=== PATIENT | female | born 1935 | race Caucasian/White ===

== ENCOUNTER 2020-06-17 17:46 | Emergency (ER) | payer MEDICARE, OTHER ==
[~2020-06-17] VITALS: Ht 157.5 cm; Wt 59.0 kg
[2020-06-17 18:35] LABS: BASOPHILS ABSOLUTE AUTO 0.03 K/mm3 (0.00-0.23); BASOPHILS PERCENT AUTO 1 % (0-2); EOSINOPHILS ABSOLUTE AUTO 0.09 K/mm3 (0.00-0.68); EOSINOPHILS PERCENT AUTO 2 % (0-6); Hemoglobin 10.2 g/dL (11.5-16.0); IMMATURE GRAN ABSOLUTE AUTO 0.02 K/mm3 (0.00-0.10); IMMATURE GRAN PERCENT AUTO 0 % (0-1); LYMPHOCYTES ABSOLUTE AUTO 1.58 K/mm3 (0.84-5.20); LYMPHOCYTES PERCENT AUTO 32 % (21-46); MONOCYTES ABSOLUTE AUTO 0.51 K/mm3 (0.16-1.47); MONOCYTES PERCENT AUTO 10 % (4-13); Mean Corpuscular HGB 18.2 pg (26.0-34.0); Mean Corpuscular Volume 61 fL (80-100); NEUTROPHILS ABSOLUTE AUTO 2.79 K/mm3 (1.96-9.15); NEUTROPHILS PERCENT AUTO 56 % (41-73); Platelet Count 253 K/mm3 (150-400); RDW Coefficient Variation 17.2 % (11.7-14.2); RDW Standard Deviation 34.9 fL (35.1-46.3); Red Blood Cell Count 5.59 M/mm3 (3.80-5.20); White Blood Cell Count 5.02 K/mm3 (4.00-11.30)
[2020-06-17 18:59] LABS: Troponin I <0.015 ng/mL (0.000-0.040)
[2020-06-17 19:00] LABS: Alanine Aminotransfer (ALT/SGP 19 U/L (12-78); Albumin, Blood 4.1 g/dL (3.4-5.0); Albumin/Globulin Ratio 1.1 (0.8-1.8); Alk Phos 106 U/L (50-136); Anion Gap 4 mmol/L (6-16); Aspartate Aminotrans (AST/SGOT 14 U/L (12-37); Bilirubin, Total 0.4 mg/dL (0.1-1.0); Blood Urea Nitrogen 21 mg/dL (8-24); Bun/Creatinine Ratio 34.4 (12.0-20.0); CO2, Blood 25 mmol/L (21-32); Calcium, Blood 9.3 mg/dL (8.5-10.1); Chloride, Blood 110 mmol/L (98-108); Creatinine, Blood 0.61 mg/dL (0.40-1.00); Globulin, Blood 3.7 g/dL (2.2-4.0); Glomerular Filtration Rate >60 (60-); Glucose, Blood 125 mg/dL (70-99); Potassium, Blood 3.9 mmol/L (3.5-5.5); Sodium, Blood 139 mmol/L (136-145); Total Protein, Blood 7.8 g/dL (6.4-8.2)
== END 2020-06-17 20:18 | disposition left against medical advice (07) ==
LOC: ER 17:46
PROVIDERS: Physician Assistant
DX: R94.31 Abnormal electrocardiogram [ECG] [EKG] (principal); R07.9 Chest pain, unspecified; Z53.20 Procedure and treatment not carried out because of patient's decision for unspecified reasons
CPT/HCPCS: 71046; 80053; 83880; 84484; 85025; 93005; 93010; 99285-25

== ENCOUNTER 2020-08-18 15:16 | Inpatient (IN) | payer MEDICARE, OTHER ==
[~2020-08-18] VITALS: Ht 157.5 cm; Wt 59.1 kg
[2020-08-18] MEDS ORDERED: ACET325 PO (15:33)
[2020-08-18 15:55] LABS: Calcium, Ionized (POC) 1.24 mmol/L (1.10-1.46); Chloride (POC) 103 mmol/L (98-108); Creatinine (POC) 0.7 mg/dL (0.6-1.0); Glucose (ISTAT POC) 183 mg/dL (70-99); Hemoglobin (POC) 11.9 g/dL (12.0-16.0); Potassium (POC) 4.1 mmol/L (3.5-5.5); Sodium (POC) 139 mmol/L (135-148); Total CO2 (POC) 23 mmol/L (21-32)
[2020-08-18 16:12] LABS: Prothrombin Time Results 10.8 Sec (9.7-11.5)
[2020-08-18 16:13] LABS: Alanine Aminotransfer (ALT/SGP 20 U/L (12-78); Albumin, Blood 3.8 g/dL (3.4-5.0); Albumin/Globulin Ratio 1.1 (0.8-1.8); Alk Phos 78 U/L (50-136); Anion Gap 7 mmol/L (6-16); Aspartate Aminotrans (AST/SGOT 21 U/L (12-37); Bilirubin, Total 0.6 mg/dL (0.1-1.0); Blood Urea Nitrogen 18 mg/dL (8-24); Bun/Creatinine Ratio 25.2 (12.0-20.0); CO2, Blood 22 mmol/L (21-32); Calcium, Blood 8.9 mg/dL (8.5-10.1); Chloride, Blood 109 mmol/L (98-108); Cholesterol 177 mg/dL (50-200); Creatinine, Blood 0.71 mg/dL (0.40-1.00); Globulin, Blood 3.4 g/dL (2.2-4.0); Glomerular Filtration Rate >60 (60-); Glucose, Blood 180 mg/dL (70-99); Magnesium, Blood 2.1 mg/dL (1.6-2.4); Sodium, Blood 138 mmol/L (136-145); Total Protein, Blood 7.2 g/dL (6.4-8.2); Triglycerides 101 mg/dL (30-160); Troponin I 0.207 ng/mL (0.000-0.040); Very Low Density Lipoprot Chol 20 mg/dL (6-32)
[2020-08-18 16:15] LABS: Hematocrit 32.6 % (33.0-51.0); Hemoglobin 9.9 g/dL (11.5-16.0); Mean Corpuscular HGB 18.3 pg (26.0-34.0); Mean Corpuscular HGB Conc 30.4 g/dL (31.5-36.5); Mean Corpuscular Volume 60 fL (80-100); Mean Platelet Volume 9.7 fL (9.1-12.4); Platelet Count 214 K/mm3 (150-400); RDW Coefficient Variation 17.6 % (11.7-14.2); RDW Standard Deviation 34.8 fL (35.1-46.3); Red Blood Cell Count 5.41 M/mm3 (3.80-5.20); White Blood Cell Count 6.77 K/mm3 (4.00-11.30)
[2020-08-18 16:16] LABS: CHOL/HDL RATIO 3.8; HDL Cholesterol 46 mg/dL (>39); LDL/HDL RATIO 2.4; Low Density Lipoprotein Chol 111 mg/dL (0-110)
[2020-08-18] MEDS ORDERED: NITR.4SL SL (16:34)
[2020-08-18] MEDS ORDERED: METF500 (16:34)
[2020-08-18] MEDS ORDERED: TRAZ50 PO (16:34)
[2020-08-18] MEDS ORDERED: Lisinopril2.5 MG (16:35)
[2020-08-18] MEDS ORDERED: Synthroid200 MCG PO (16:35)
[2020-08-18 19:57] LABS: International Normalized Ratio 1.06; Prothrombin Time Results 11.4 Sec (9.7-11.5)
--- NOTE | 2020-08-18 21:30 | NUR ---
ASSUMPTION OF CARE PT ALERT IN BED, ORIENTED TO SELF, LOCATION, YEAR AND FOLLOWING DIRECTIONS. O2 SAUTRATIONS> 90% ON RA, MONITOR SHOWS SINUS RHYTHM WITH HR 70'S-80'S, HTN NOTED WITH SBP 150'S-160'S, PT REPORTS 6/10 CP, NITRO GTT INFUSING @ 10 INITIALLY, TITRATED UP TO 25, NEW ORDER FOR PRN MORPHINE. R RADIAL ACCESS SITE STABLE, ASSESSED WITH DAY SHIFT RN, SOFT AND NO HEMATOMA NOTED, TR BAND IN PLACE. PT DENIES GI/ ISSUES AT THIS TIME.
[2020-08-19 03:36] LABS: BASOPHILS ABSOLUTE AUTO 0.03 K/mm3 (0.00-0.23); BASOPHILS PERCENT AUTO 0 % (0-2); EOSINOPHILS ABSOLUTE AUTO 0.02 K/mm3 (0.00-0.68); EOSINOPHILS PERCENT AUTO 0 % (0-6); Hematocrit 29.9 % (33.0-51.0); Hemoglobin 9.3 g/dL (11.5-16.0); IMMATURE GRAN ABSOLUTE AUTO 0.02 K/mm3 (0.00-0.10); IMMATURE GRAN PERCENT AUTO 0 % (0-1); LYMPHOCYTES ABSOLUTE AUTO 1.07 K/mm3 (0.84-5.20); LYMPHOCYTES PERCENT AUTO 16 % (21-46); MONOCYTES ABSOLUTE AUTO 0.65 K/mm3 (0.16-1.47); MONOCYTES PERCENT AUTO 10 % (4-13); Mean Corpuscular HGB 18.5 pg (26.0-34.0); Mean Corpuscular HGB Conc 31.1 g/dL (31.5-36.5); Mean Corpuscular Volume 59 fL (80-100); Mean Platelet Volume 9.7 fL (9.1-12.4); NEUTROPHILS ABSOLUTE AUTO 5.05 K/mm3 (1.96-9.15); NEUTROPHILS PERCENT AUTO 74 % (41-73); Platelet Count 200 K/mm3 (150-400); RDW Standard Deviation 34.1 fL (35.1-46.3); Red Blood Cell Count 5.04 M/mm3 (3.80-5.20); White Blood Cell Count 6.84 K/mm3 (4.00-11.30)
[2020-08-19 03:52] LABS: Alanine Aminotransfer (ALT/SGP 43 U/L (12-78); Albumin, Blood 3.6 g/dL (3.4-5.0); Albumin/Globulin Ratio 1.2 (0.8-1.8); Alk Phos 63 U/L (50-136); Anion Gap 4 mmol/L (6-16); Aspartate Aminotrans (AST/SGOT 277 U/L (12-37); Bilirubin, Total 0.8 mg/dL (0.1-1.0); Blood Urea Nitrogen 17 mg/dL (8-24); Bun/Creatinine Ratio 24.9 (12.0-20.0); CO2, Blood 26 mmol/L (21-32); Calcium, Blood 8.3 mg/dL (8.5-10.1); Chloride, Blood 106 mmol/L (98-108); Creatinine, Blood 0.68 mg/dL (0.40-1.00); Globulin, Blood 3.1 g/dL (2.2-4.0); Glomerular Filtration Rate >60 (60-); Glucose, Blood 151 mg/dL (70-99); Potassium, Blood 3.6 mmol/L (3.5-5.5); Sodium, Blood 136 mmol/L (136-145); Total Protein, Blood 6.7 g/dL (6.4-8.2)
--- NOTE | 2020-08-19 06:07 | NUR ---
SHIFT SUMMARY PT SLEPT VERY LITTLE DURING NIGHT R/T FREQUENT NURSING ASSESSMENT/CARE, REMAINS ORIENTED TO SELF, LOCATION, YEAR, AND SIMPLE UNDERSTANDING OF SITUATION, PT IS VERY FORGETFUL ASKING SAME QUESTIONS FREQUENTLY. MONITOR SHOWS SINUS RHYTHM WITH HR 70'S, BP IMPROVED WITH SBP 130'S-150'S, NITRO GTT INFUSING @ 25, HEPARIN GTT INITIATED THIS SHIFT, MANAGED PER PHARMACY. PT DENIED CP WITH AM ASSESSMENTS. REMOVAL OF TR BAND DELAYRED R/T MINIMAL BLEEDING NOTED DURING DEFLATION, BAND REMOVED @ 0400 AND SITE REMAINS STABLE. PT DENIES GI/ ISSUES, TOLERATED PO FLUIDS WELL DURING NIGHT. PT VERY WEAK, PREFERRED USE OF BEDPAN OVER BSC, ABLE TO MAKE SMALL REPOSITIONS IN BED. PT EDUCATED ON USE OF CALL LIGHT AND IS ABLE TO USE APPROPRIATELY.
--- NOTE | 2020-08-19 08:15 | NUR ---
HEPARIN GTT INFUSING PER EMAR, NITRO GTT INFUSING AT 25 MCG. VERIFIED PUMP RATES WITH OFFGOING SHIFT RN. PT IS ORIENTED TO SELF AND SURROUNDINGS, ABLE TO STATE THAT SHE IS IN A HOSPITAL, STATES THAT SHE LIVES IN [facility] BUT UNABLE TO STATE WHERE THIS HOSPITAL IS LOCATED. DR. TANNER AT BEDSIDE, STATED PLAN IS FOR ANOTHER HEART CATH TODAY. HEART CENTER STAFF TOOK PATIENT TO HC WITH HEPARIN/NITRO INFUSING. PT REQUESTED THAT THIS RN CALL AND UPDATE HER MALICK, THIS RN SPOKE WITH DON ON THE PHONE, ANSWERED QUESTIONS TO PT'S 'S SATISFACTION.
--- NOTE | 2020-08-19 10:50 | NUR ---
GROIN SITE BLEED DR. TANNER BY TO SEE PT AND EVAL GROIN OOZING. ORDERS RECEIVED TO HOLD MANUAL PRESSURE FOR [address] THEN [address] FEMSTOP IF OOZE CONTINUES. MANUAL PRESSSURE HELD BY THIS RN FOR 20 MINUTES ORDERED AND OOZING CONTINUED. FEMSTOP PLACED AT 1048 WITH 140 MM PRESSURE PER ORDERS.
--- NOTE | 2020-08-19 10:52 | NUR ---
PATIENT ARRIVED BACK TO UNIT FROM [facility] AT 1000. NO HEMATOMA/DISCHARGE NOTED AT R. GROIN SITE. PT REMAINED IN FLAT POSITION, WITHIN 10 MINUTES FROM ARRIVAL TO UNIT GROIN SITE STARTED BLEEDING. MANUAL PRESSURE HELD, RAFITA DRESSING APPLIED. BLOOD PRESSURE ELEVATED. DR. TANNER NOTIFIED OF BLEED AND OF ELEVATED BP, ORDERS TO CONTINUE TO HOLD MANUAL PRESSURE GIVEN AND ORDERS FOR [address] TANNER CAME TO BEDSIDE, BLEEDING CONTINUED AT THAT TIME. ORDERS TO APPLY FEM STOP GIVEN. NO NEW BLEEDING AT THIS TIME, WCTM.
--- NOTE | 2020-08-19 14:52 | NUR ---
PT BECAME AGITATED STARTING AT 1200 DURING A LAB DRAW. PT TRIED TO GET UP, STARTING PULLING AT IV, STATED THAT THE STAFF WAS "TRYING TO KILL ME." R. GROIN POST-ANGIO SITE BEGAIN BLEEDING MORE. PATIENT WAS CONSTANTLY TRYING TO SIT UP AND PULLING KNEES UP TO ABDOMEN. THIS RN PROVIDED ORIENTING INFORMATION AND REASSURED PT THAT SHE WAS IN THE HOSPITAL, IDENTIFIED THE STAFF NURSES AND CNAs, HOWEVER PT CONTINUED TO YELL THAT STAFF WAS TRYING TO KILL HER AND THAT SHE NEEDED US TO CALL AN AMBULANCE TO TAKE HER TO THE HOSPITAL. SECURITY CAME TO ASSIST AT BEDSIDE, CHARGE NURSE SARAHY Hidalgo ALSO AT BEDSIDE AT THIS TIME. DR. CHOUDHARY WAS CALLED BY SARAHY HARVEY, ORDERS FOR ATIVAN GIVEN AND ADMINISTERED PER EMAR, ORDERS FOR X4 EXTREMITY RESTRAINTS AND RUBEN VEST GIVEN. DR. CHOUDHARY CAME TO BEDSIDE TO EVALUATE PT. ORDERS FOR HALDOL GIVEN, ADMINISTERED PER EMAR. SOME IMPROVEMENT NOTED AFTER HALDOL GIVEN. PT WAS NO LONGER PULLING AT RESTRAINTS, BUT STILL ABLE TO BE ARROUSED. ONCE PT STOPPED KICKING AND TRYING TO SIT UP BLEEDING AT ANGIO SITE STOPPED. RICARDA.
--- NOTE | 2020-08-19 17:26 | NUR ---
Spiritual care note: Met with spouse, pt's dtr and unruly. Took family to ICU waiting for conversation @ POC per nursing request. Spouse appears to have some confusion. He was often repetative. He believes pt can improve with time. He is adamant that if she goes to a SNF, "She will within 48 hrs." Moments later, he states that she will absolutely need cardiac rehab in one of the local SNFs. Dtr attempted to get him to understand that pt has dementia and she will continue to decline. Dtr wanted to talk about plan for pt's safety as pt will often became combative and "take off." Spouse insisted that with his "extensive neurological education, he understands the brain better than anyone here" and she will not get worse b/c she has never been diagnosed with any form of dementia. Also, because pt has insisted she wants to live, she will forever remain Full Code status "Until a concrete gun operator deems her unable to make her own choices." According to spouse, this is the only way her code status can change. Several gentle attempts were made to correct spouse, but he kept repeating his extensive education in medicine. It is clear to me that all involved love this woman. Also all of them want what is best for her. They disagree on what "best" is, however. More family to arrive in coming days. Pt is deeply buddhist and loves her Pentecostalism audi. Prayer provided at bedside and rosary place with pt. Pt appeared to be sleeping peacefully. Television And Radio Repairer services will remain available.
--- NOTE | 2020-08-19 18:15 | NUR ---
SHIFT SUMMARY PT IS ORIENTED TO SELF ONLY THIS SHIFT, UNABLE TO FOLLOW DIRECTIONS, PULLS AT LINES, KICKS AND HITS SIDERAILS IF THEY ARE UP, REPOSITIONED FREQUENTLY T/O SHIFT. PT HAD ONE INCONTINENT VOID, APPEARED TO BE RETAINING, ORDER FOR WATTS AND PLACED. PT APPEARED TO HAVE SOME RELIEF OF AGITATION POST VOID, AND POST WATTS PLACEMENT, >700 ML DRAINED IMMEDIATELY POST WATTS INSERTION. PT HAD BLEED FROM R. GROIN SITE POST ANGIO, SEE PREVIOUS NURSING NOTES. FEMSTOP REMOVED BEFORE END OF SHIFT, NO ADDITIONAL BLEEDING EVENTS FROM R. GROIN SITE SINCE REMOVAL OF FEMSTOP. PT'S SPOUSE DON WAS AT BEDSIDE THROUGHOUT AFTERNOON, DON STATED THAT AT HOME PATIENT IS VERY FORGETFUL AND NEEDS ASSISTANCE WITH ADLs IN ORDER TO PREVENT THE PT FROM FALLING. 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 PT'S SPOUSE ALSO CLAIMED TO HAVE STARTED SEVERAL NURSING HOMES, AND THAT HE BELIEVED THAT WHEN SOMEONE WAS PLACED IN A SNF, THEY WOULD WITHIN THE FIRST FEW DAYS. THIS RN PROVIDED REASSURANCE THAT THERE ARE OPTIONS FOR SAFE PROVISION OF CARE THAT CAN BE EXPLORED.
[2020-08-19 19:45] LABS: Source, Urine Catheter
[2020-08-19 19:51] LABS: Appearance, Urine Clear (Clear); Bilirubin, Urine Neg (Neg); Blood, Urine 3+ (Neg); Color, Urine Yellow (P-Yellow); Glucose Qualitative, Urine 2+ (Neg); Ketones, Urine 2+ (Neg); Leukocyte Esterase, Urine Neg (Neg); Nitrite, Urine Neg (Neg); Protein, Urine 2+ (Neg); Specific Gravity, Urine 1.015 (1.003-1.022); Urobilinogen, Urine NORM (Normal)
[2020-08-19 19:59] LABS: Bacteria Mod /hpf; Squamous Epithelial Cells Few /hpf (Few); White Blood Cells, Urine 0-2 /hpf (0-5)
--- NOTE | 2020-08-19 20:00 | NUR ---
ASSUMED CARE OF PT AT 1915. REPORT RECEIVED AT BEDSIDE. PT PRESENTS IN BED. ALERT AND CONFUSED. PULLING AT RESTRAINTS AND MUMBLING. PT DOES REDIRECT AND CALM WITH SOOTHING WORDS. NO S/S DYSPNEA OR PAIN. RIGHT GROIN PUNCTURE SITE ASSESSED WITH OFFGOING RN. NO HEMATOMA OR OOZING. SURROUNDING ECCHYMOSIS NOTED. RIGHT WRIST WITH ARMBOARD SECONDARY TO RADIAL ACCESS. NO HEMATOMA OR OOZING. WILL REVIEW CHART AND PLAN OF CARE FOR THIS PT.
--- NOTE | 2020-08-20 00:30 | NUR ---
HAVE OPTED TO REMOVE LOWER EXTREMITY RESTRAINTS. WILL CONTINUE TO CLOSELY MONITOR PT FOR SAFETY. WHEN UPPER EXTREMITY RESTRAINTS WAS REMOVED, PT REACHES QUICKLY FOR WATTS CATHETER AND PULLS BREAKING CATHETER FREE FROM STATLOCK. PT FREQUENTLY MOVES ABOUT IN BED. VERY ACTIVE WITH HER LEGS THOUGH NO AGRESSIVENESS. PT NEEDS FREQUENT REASSURANCE AND REDIRECTION. WILL CONTINUE TO MONITOR PT.
[2020-08-20 05:41] LABS: Hematocrit 30.2 % (33.0-51.0); Hemoglobin 9.3 g/dL (11.5-16.0); Mean Corpuscular HGB 18.2 pg (26.0-34.0); Mean Corpuscular HGB Conc 30.8 g/dL (31.5-36.5); Mean Corpuscular Volume 59 fL (80-100); Platelet Count 222 K/mm3 (150-400); RDW Coefficient Variation 16.8 % (11.7-14.2); RDW Standard Deviation 33.1 fL (35.1-46.3); Red Blood Cell Count 5.12 M/mm3 (3.80-5.20); White Blood Cell Count 9.03 K/mm3 (4.00-11.30)
[2020-08-20 05:59] LABS: Anion Gap 9 mmol/L (6-16); Blood Urea Nitrogen 8 mg/dL (8-24); Bun/Creatinine Ratio 17.4 (12.0-20.0); CO2, Blood 23 mmol/L (21-32); Calcium, Blood 8.8 mg/dL (8.5-10.1); Chloride, Blood 106 mmol/L (98-108); Creatinine, Blood 0.46 mg/dL (0.40-1.00); Glomerular Filtration Rate >60 (60-); Glucose, Blood 157 mg/dL (70-99); Sodium, Blood 138 mmol/L (136-145)
--- NOTE | 2020-08-20 06:30 | NUR ---
PT REMAINS VERY ANXIOUS AND DID STATE SHE FELT SHE NEEDED TO HAVE BM. DID OPT TO GET PT UP TO BEDSIDE COMMODE WITH TWO PERSON ASSIST. ORTHOSTATIC BP'S DONE DURING THIS TIME WITH DRAMATIC CHANGES IN PRESSURES. SEE FLOWSHEET FOR DETAILS. PT HAS BEEN MEDICATED WITH 3 MG HALDOL, AND 1 MG ATIVAN WITH SOME RELIEF. PT REMAINS WITHOUT HEMATOMA OR OOZING FROM EITHER RIGHT GROIN OR RIGHT RADIAL ACCESS SITES. ECCHYMOSIS IS NOTED. WILL CONTINUE TO MONITOR PT, AND WILL REPORT OFF TO ONCOMING RN.
--- NOTE | 2020-08-20 08:00 | NUR ---
LT WRIST IV REMOVED BLISTERING NOTED BELOW DRESSING. BLISTERING IS NOT UNDER THE WRIST RESTRAINT. IV REMOVED AND PRESSURE DRESSED
--- NOTE | 2020-08-20 08:23 | NUR ---
PO MEDICATIONS ARE HELD PT IS ALTERED AND AGITATED, SHE CAN NOT BE DIRECTED TO SAFELY SWALLOW MEDICATIONS WITHOUT AIRWAY COMPROMISE.
--- NOTE | 2020-08-20 14:00 | NUR ---
PT APPEARS TO HAVE A SLIGHT IMPROVEMENT IN MENTATION, REMAINS CONFUSED BUT IS ABLE TO EXPRESS HER NEEDS. PT AWAKENS EASILY TO VERBAL STIMULI. PT REPOSITIONED NUMEROUS TIMES T/O THE DAY, WAS UP TO BEDSIDE CHAIR WITH RESTRAINTS IN PLACE, PT DID NOT WISH TO REMAIN IN CHAIR VERY LONG. ECCOMOSIS HAS NOT WORSENED TO RT ARM THAT EXTENDED TO ELBOW UPON SHIFT CHANGE THIS AM, IV TO RT HAND WAS D/C IT WAS NOT WORKING. PT LT GROIN SITE WITH BRUSING NOTED AROND SITE WHICH ALSO HAS NOT WORSENED T/O THIS SHIFT. PT REMAINS IN SWB VEST HAS BEEN REMOVED AT THIS POINT BUT IS NOT D/C. VSS. PT IS CURRENTLY SLEEPING WELL, PAOLON
--- NOTE | 2020-08-20 16:24 | NUR ---
PT REMAINS CONFUSED, ORIENTED TO SURROUDNINGS, SELF AND FAMILY. S/O AT BEDSIDE IS ANSWERING FOR PT ORIENTATION IS BEING ASSESSED AND STS "SHE WAS CLOSE ENOUGH" WHEN PT WAS NOT CLOSE TO CORRECT ANSWERING QUESTIONS. PT RESTING CALMLY IN BED AT THIS TIME, WILL CONTINUE TO MONITOR FOR MENTATION IMPROVEMENT FOR REMOVING SWB.
--- NOTE | 2020-08-20 18:38 | NUR ---
PT HAS CONTINUED TO HAVE AND IMPROVEMENT IN CONFUSION. WE ARE PERFORMING A TRIAL REMOVAL OF THE RESTRAINTS. PT ATE 75% OF HER DINNER AND WAS ABLE TO SAFELY TAKE HER IRON TABLET THIS EVENING WITH APPLESAUCE. PT IS ABLE TO TALK ABOUT HER HX AN RN BUT SHE IS UNSURE WHERE SHE IS AT, THE DATE OR THE PRESIDENT. PT IS RESTING WELL IN BED. THERE ARE NO FURTHER CHANGES SINCE THE LAST NOTE ENTRY
--- NOTE | 2020-08-20 22:29 | NUR ---
PATIENT IS CALM COOPERATIVE, FOLLOW COMMANDS ABLE TO MAKE NEEDS KNOWN, USING CALL LIGHT APPROPRIATELY, ALERT TO SELF, PLACE, LITTLE FOGGY ON TIME AND SITUATION ABLE TO TELL ME FAMILY MEMBERS NAMES.
--- NOTE | 2020-08-20 22:52 | NUR ---
PATIENT ANXIOUS, TRYING TO GET OUT OF BED, TREMORS. REFER TO MAR FOR INTERVENTION AND REDIRECTION PROVIDED
--- NOTE | 2020-08-21 05:07 | NUR ---
PATIENT IS ABLE TO USE THE BEDSIDE COMMODE WITH ONE PERSON ASSIST, ABLE TO MAKE NEEDS KNOWN, STILL NEEDS REINFORCEMENT TO USE CALL LIGHT, BED ALARM ON. NOTED TREMORS IN ALL FOR EXTREMITIES, INCREASED WITH EXTENSION. ALERT TO SELF, THINKS SHE IS IN A CLINIC, AND LATER REMEMBERED HOSPITAL STILL FOGGY ON TIME THOUGHT IT WAS JUNE 1934 AND AT ONE POINT SHE WAS IN THE HOSPITAL JUST HAD HER DAUGHTER GRACIA. THIS AM LAST CHECK AT 0500 PATIENT AWARE OF SELF, PLACE, AND DISORIENTATED TO SITUATION AND TIME BUT COULD TELL ME ARJUN PRESIDENT. PATIENT IS RESTING IN BED COMFORTABLY, PATIENT EXPRESSED THAT SHE NORMALY GOES TO BED AT 0300 AND STAYS UP AND PLAYS SOLITARE, ATTEMPTED TO CALL LAST NIGHT THE NUMBER IN THE CHART IS ANNA'S ACTUAL CELL PHONE NUMBER. CALLED HER DAUGHTER GRACIA, PATIENT LEFT MESSAGE NO ANSWER.
--- NOTE | 2020-08-21 11:38 | NUR ---
PT TREATED WITH 2MG MORPHINE FOR BACK PAIN AND PRESSLEY, HTN NOTED PT ALSO TREATED WITH APRESOLINE. PT IS RESTING WELL IN BED NOW. BP SLOWLY DECREASING
--- NOTE | 2020-08-21 12:40 | NUR ---
PT BECOMING ANXIOUS AND AGITATED, PT SHOUTING OUT, UNABLE TO REDIRECT PT VERBALLY. PT MEDICATED WITH HALDOL PER ORDERS WHICH CALMED PT SLIGHTLY BUT PT CONTINUES CLIMBING AROUND IN BED AGITATED, PT THEN MEDICATED WITH ATIVAN FOR CONTINUED ANXIETY AND AGITATION.
--- NOTE | 2020-08-21 13:00 | NUR ---
PT RESTING WELL, VSS, NADN. PT AWAKENS TO VERBAL STIMULI.
--- NOTE | 2020-08-21 14:29 | NUR ---
Report received from Manny Felix. Anticipate pt transfer to PCU 3 shortly.
--- NOTE | 2020-08-21 15:23 | NUR ---
Pt arrived from ICU 5; confused, but talking a little, saying that the coban on her left arm was itchy, that she wanted some water, and tossing and turning a little in bed, all while keeping her eyes closed. I asked the pt if she could open her eyes to see the cup of water offered to her, and she said "my eyes are open" but they were not. She has her and two daughters at the bedside, attending to her needs. Warm blanket provided, lotion and socks at their request. Pt was able to drink some water without difficulty. at desk for third time, this time asking for Tylenol for her pain. STRATEGIC DEBRIEFING SPECIALIST oriented to use of the call light for future needs and requests.
--- NOTE | 2020-08-21 15:41 | NUR ---
Pt was able to take 2 Tylenol with applesauce while sitting up in bed. KDur tablets too large for pt to swallow in her present state of intermittent drowsiness. Will attempt to dissolve and administer when she is more awake and cooperative.
--- NOTE | 2020-08-21 17:34 | NUR ---
Assisted OOB with 2 person assist to bedside commode. Pt agitated about Torres catheter; it was dc'd at 1630. At this time, pt insisted on getting OOB to chair. Daughters helped her get set up for dinner; also sitting with the pt. 2 person max assist to stand and pivot to the chair, using gait belt. Family surrounding and attending to pt.
--- NOTE | 2020-08-21 18:01 | NUR ---
Pt ate small amount of dinner, about 15%, took oral medications and drank some water. Transferred back to bed with 2 person assist and use of gait belt. Pt seems less agitated since having her Torres out. Heart rate was 110-120; now normalizing around 89-95 bpm. Pt states she is tired and wants to sleep. Family will be taking shifts during the night to be at bedside in the hopes that it will help calm and reorient the pt as needed. Recliner chair provided in the room for pt/cargiver needs.
--- NOTE | 2020-08-21 22:02 | NUR ---
IV ASSESSMENT THIS RN NOTES SOME DRAINAGE FROM IV WITH FLUSH, NO SIGNS OF INFILTRATION, NO SIGNS OF TENDERNESS TO SITE FROM PT. OLD BRUISING TO SITE. THIS RN CHANGES DRESSING TO IV AND PLACES GAUZE UNDER WINDOW TO CATCH ANY EXCESS DRAINAGE FROM IV DUE TO SLIGHT WIDENING OF INSERTION SITE. FLUSHES W/O DIFFICULTY, NO SIGNS OF INFILTRATION.
--- NOTE | 2020-08-21 22:04 | NUR ---
CALL TO PROVIDER [phone] THIS RN CALLS TO REQUEST ORDERS FOR INDIGESTION AND NAUSEA FROM AMELIE MAURO BIT SHARPENER OPERATOR. PT REPORTS "CHEST PAIN" SINCE YESTERDAY THAT HAS BEEN CONSTANT. THIS RN ASKS PT TO POINT WHERE PAIN IS, PT POINTS TO EPIGASTRIC AREA. THIS RN ASKS PT TO DESCRIBE THE PAIN, PT APPEARS CONFUSED BY QUESTION, THIS RN ASKS PT IF IT IS LIKE AN INIDGESTION PAIN PT ALSO REQUESTED MILK, PT SAYS "YES" AND SHAKES HEAD. AMELIE SUÁREZ NOTIFIED AND ORDER FOR AMPHOJEL AND ZOFRAN PRN PLACED. PT HAS BEEN DOSED WITH IV ZOFRAN FOR NAUSEA.
--- NOTE | 2020-08-22 00:25 | NUR ---
CALL TO PROVIDER THIS RN CALLS DR CHOUDHARY FOLLOWING DOSING PT WITH X1 NITRO SL WITH NO EFFECT FOR CP. ORDER GIVEN TO TRY X1 MORE NITRO AND THEN ADMIN 25 MCG FENTANYL IV PER ORDERS IF NO RELIEF WITH 2ND DOSE OF NITRO. ORDER FOR TROPONIN NOW PLACED. PT BP CURRENTLY 141/86 PRIOR TO SECOND DOSE OF NITRO. STATES PAIN IS BURNING AND SHARP IN CENTER CHEST RATING 5/10.
--- NOTE | 2020-08-22 00:40 | NUR ---
PT UPDATE PT STATES RELIEF FOLLOWING 2ND DOSE OF NITRO PER DR CHOUDHARY ORDER. PT STATES SAME NUMBER OF 5/10. THIS RN EXPLAINS TO PT THAT PRIOR TO NITRO PT STATED 5/10. PT STATES PAIN IS 4/10 THEN. PT APPEARS MORE RESTFUL, BP DOWN FROM 140 SBP TO 101-103 SBP. HR CURRENTLY 103-105 SINUS TACH. DAUGHTER AT BEDSIDE UPDATED ON PLAN TO REASSESS PAIN AND BLADDER SCAN IF PT DOES NOT VOID WHEN TROPONIN RESULTS AND THIS RN UPDATES PROVIDER. PT APPEARS COMFORTABLE AT THIS TIME. DAUGHTER TELLS THIS RN PT APPEARS TO BE MORE COMFORTABLE WELL. PT ON TELE.
--- NOTE | 2020-08-22 01:45 | NUR ---
CALL TO UPDATE PROVIDER PROVIDER NOTIFIED OF TROPONIN, PT CURRENTLY ONLY STATING ABD PAIN AND SOME FOOT PAIN. NO FURTHER ORDERS AT THIS TIME, TROPONIN SIGNIFICANTLY LOWERED FROM LAST RESULTED ON 08/19.
[2020-08-22 04:12] LABS: Anion Gap 7 mmol/L (6-16); Blood Urea Nitrogen 15 mg/dL (8-24); Bun/Creatinine Ratio 23.7 (12.0-20.0); CO2, Blood 22 mmol/L (21-32); Calcium, Blood 8.6 mg/dL (8.5-10.1); Chloride, Blood 106 mmol/L (98-108); Creatinine, Blood 0.63 mg/dL (0.40-1.00); Glomerular Filtration Rate >60 (60-); Glucose, Blood 170 mg/dL (70-99); Potassium, Blood 3.7 mmol/L (3.5-5.5); Sodium, Blood 135 mmol/L (136-145)
--- NOTE | 2020-08-22 04:21 | NUR ---
PT UPDATE PT HAS HAD AGITATION AND REQUESTING TO GO HOME, STATES SHE IS LEAVING, HAS DIFFICULTY STANDING TO TRANSFER TO [facility]. 2 PERSON ASSIST NEEDED. THIS RN AND DAUGHTER GRACIA AT BEDSIDE ATTEMPT TO CALM AND REASSURE PT, PT CONTINUES TO ARGUE FOR GOING HOME AND STATES "I'VE NEVER BEEN IN A HOSPITAL LIKE THIS" STATES SHE IS HUNGRY BUT IS NOT EATING ANYMORE OF THE FOOD HERE WHEN OFFERED A SNACK. WHEN BACK IN BED. PT REPOSITIONS IN BED AND ATTEMPTS TO GET UP ALTHOUGH WEAK. THIS RN HAS DISCUSSED PLAN OF CARE WITH GRACIA DAUGHTER OF PT AND BOTH ARE IN AGREEMENT THAT THE PLAN TO AVOID SEDATION WITH BENZOS FOR ANXIETY/AGITATION IS STILL PREFERABLE. PER DAUGHTER OF PT, PT HAS THESE EPISODES OF AGITATION/ANXIETY AT HOME AND THEY DO NOT MEDICATE PT FOR THEM. DAUGHTER TELLS THIS RN THAT THEY USUALLY ATTEMPT TO REASSURE PT.
--- NOTE | 2020-08-22 08:06 | NUR ---
SHIFT SUMMARY PT DAUGHTER AT BEDSIDE T/O SHIFT TO ASSIST W/AND REASSURE PT THROUGH NIGHT. PT FREQUENTLY AGITATED AND RESTLESS. FREQUENLTY ASKED TO GET UP TO USE BEDSIDE COMMODE. SEVERAL TIMES WHERE NO OUTPUT WITH UP TO COMMODE. PT ADAMANT THAT SHE WAS GOING HOME AND COULDN'T STAY IN HOSPITAL ANYMORE. INCONSISTENT WITH DESCRIBING PAIN AND RATING. C/O ONLY ABD PAIN AND HEADACHE AFTER MULTIPLE C/O CP WITH SOME RELIEF FOLLOWING 2ND DOSE OF NITRO PER ORDER. MEDICATED W/TYLENOL FOR HEADACHE PER PRN ORDER. PT SINUS TACH 90'S-110'S. PT WEAK WITH UP TO COMMODE USING 2 PERSON ASSIST AND GAIT BELT. PT STILL CONSISTENTLY KEEPS EYES SHUT. IV IN L AC SALINE LOCKED.
--- NOTE | 2020-08-22 16:08 | NUR ---
UPDATE PHYSICIAN UPDATED. PT REPORTING PAIN 10/10 FOR HEADACHE. MEDICATIONS TO BE PROVIDED PER EMAR
--- NOTE | 2020-08-22 17:58 | NUR ---
SHIFT SUMMARY PT ALERT AND ORIENTED. CONFUSED AT TIMES. FAMILY AT BEDSIDE WITH PT T/O SHIFT. PT 2 PER ASSIST TO COMMODE. HR STABLE. BP STABLE. NO CP OR PRESSURE THIS SHIFT. PT ABLE TO TURN SELF IN BED. REPORTS HEADACHE. PHYSICIAN NOTIFIED, MEDICATED PER EMAR. CONSULT TO BE PLACED FOR PSYCH FOR SUNDAY AM. WILL CONT TO MONITOR UNTIL REPORT GIVEN TO NIGHTSHIFT RN.
--- NOTE | 2020-08-23 04:16 | NUR ---
PHYSICIAN COMMUNICATION CONTACTED SOLVENT PLANT TREATER PHYSICIAN, DR CHOUDHARY, TO NOTIFY HIM THAT THE PATIENT HAD BEEN EXPERIENCING LEG CRAMPS THAT TYLENOL WAS INEFFECTIVE FOR. ASKED DR CHOUDHARY IF A MUSCLE RELAXER COULD BE ORDERED TO HELP. DR CHOUDHARY ORDERED 10 MG FLEXERIL TID PRN.
--- NOTE | 2020-08-23 05:29 | NUR ---
SHIFT SUMMARY PATIENT ALERT AND ORIENTED X2-3. IS PLEASANTLY CONFUSED. FAMILY AT BEDSIDE TO HELP REDIRECT PATIENT WHEN SHE IS ANXIOUS. PATIENT MEDICATED PER EMAR FOR PAIN AND LEG CRAMPS. NO ACUTE ISSUES NOTED. IV PATENT AND FLUSHED. BED IN LOWEST POSITION WITH WHEELS LOCKED AND ALARM ON. CALL LIGHT WITHIN REACH. REPORT GIVEN TO ONCOMING RN.
--- NOTE | 2020-08-23 17:55 | NUR ---
SHIFT SUMMARY PT A&O2-3, PLEASANT & COOPERATIVE WITH CARE, FAMILY AT BEDSIDE. PT DENIES CP/PRESSURE/SOB, VSS/BP >140 SYSTOLIC TREATED WITH HYDRALAZINE X2, WHICH APPROPRIATELY TREATED BP, ON RA. CHERIE PO. AMB WITH MOD/MAX ASSIST TO STAND TRANSFER WITH 1 PP TO BSC/CHAIR/BED. VOIDING WELL. PSYCH CONSULT COMPLETE. WILL REPORT TO ONCOMING NOC RN.
--- NOTE | 2020-08-24 05:55 | NUR ---
PATIENT IS ALERT AND ORIENTATED , ABLE TO MAKE NEEDS KNOWN, USES CALL LIGHT APPROPRIATELY, CALM WITH FAMILY AT BEDSIDE, SLEPT GOOD WITH NO CONCERNS OVERNIGHT EASILY AROUSABLE TO VOICE. VITAL SIGNS STABLE X 1 HYDRALYZINE 10MG IVP GIVEN FOR SBP> 140 PER PRN ORDER, PATIENT HAD NO PAIN THROUGHOUT THE NIGHT.
--- NOTE | 2020-08-24 14:32 | NUR ---
Met pt. sitting in a chair and talking with a family member on a visit , pt reports doing much better encouraged pt and offered prayers .
--- NOTE | 2020-08-24 19:47 | NUR ---
SHIFT SUMMARY: NO ACUTE CHANGES THIS SHIFT. PT CONTINUES ALERT, ORIENTED, ABLE TO MAKE HER NEEDS KNOWN. MAINTAINING O2 SATS >93% ON RA, SIN RHYTHM ON MONITOR, CONTINENT TO BSC WITH FWW AND SBA, CONTINUES TO TAKE PILLS WHOLE IN APPLESAUCE, NO CHANGES IN BRUISING TO RT RADIAL AND GROIN SITES. PT'S FAMILY HAS BEEN AT BEDSIDE AND ATTENTIVE T/OUT THE DAY. PT ADMISSION STATUS WAS UPGRADED TO MEDICAL W/NO TELE. REPORT HAS BEEN GIVEN TO CANDICE PANIAGUA TO ASSUME CARE OF PT.
--- NOTE | 2020-08-25 04:11 | NUR ---
SHIFT SUMMARY NO ACUTE CHANGES THIS SHIFT. PT PLEASANT AND COOPERATIVE, BUT FORGETFUL AT TIMES. FAMILY MEMBER AT BEDSIDE T/O NOC FOR SUPPORT. 1 ASSIST TO BSC. IV SL. R GROIN + R RADIAL SITES REMAIN UNCHANGED. CALL LIGHT WITHIN REACH.
--- NOTE | 2020-08-25 07:43 | NUR ---
pt reports pain still in her neck had po tylenol this am also stated her r arm has pain 6/10 bruised r groin is less so tegaderm in place pt daughter at bedside stated she did not sleep well pt also stated this asked if she may go home today also req a paper for missing work she flew her from [place]
--- NOTE | 2020-08-25 10:58 | NUR ---
DR HUITRON CALLED INC DOSE OF SERAQUEL FROM 25 MG TO 75 MG FOR TONIGHT
--- NOTE | 2020-08-25 12:00 | NUR ---
PT REQ PO TYLENOL FOR NECK PAIN EARLIER HAD A BM AT BREAKFAST HAD A PRUNE COACKTAIL
--- NOTE | 2020-08-25 14:41 | NUR ---
currently sleeping earlier had episode of tachycardia with cp and sob after gtting up oob to bathroom 1 dose of nitro given pt then had lg loose bm in bed
--- NOTE | 2020-08-25 16:11 | NUR ---
report given to guillaume on med floor pt resting to transfer to room 302 discussed with pt's son earlier
--- NOTE | 2020-08-25 17:12 | NUR ---
ARRIVES FROM PCU AROUND 1622. ALERT TO SELF, EVENT AND FAMILY. PLEASANT. COOPERATIVE. SON IN ROOM WITH PATIENT. LUNGS CLEAR. B.T. PRESENT. RT HAND/WRIST BRUISED. RT GROIN ANGIO SITE BRUISED WITH DRESSING INTACT. NO OBVIOUS SIGNS OF BLEEDING FROM EITHER SITE. UNLABORED RESPIRATIONS. DENIES ANY CHEST PAIN/DISCOMFORT. IV RT A.C. LIGHTLY WRAPPED W/COBAN. RECLINER BROUGHT IN FOR FAMILY MEMBER ONE STAYS . POSSIBLE D'C FRI/SAT. TM
--- NOTE | 2020-08-26 04:58 | NUR ---
SHIFT SUMMARY A/O 2-3, PLEASANT AND COOPERATIVE WITH CARE. DENIES PAIN OR SOB. AT BEDISDE T/O SHIFT. VSS, NO ACUTE CHANGES AT THIS TIME. BED IN LOWEST POSITION WITH CALL LIGHT IN REACH. WILL CONTINUE TO MONITOR AND REPORT TO ONCOMING RN.
--- NOTE | 2020-08-26 07:10 | NUR ---
RN note: Assumed care of patient at 0645. Pt in bed awake with son at bedside. Pt denies pain/nausea. No signs of distress. Requested decaf coffee. Provided her with her coffee and oriented to call light for needs.
--- NOTE | 2020-08-26 10:43 | NUR ---
RN NOTE: PATIENT REFUSED TO TAKE HER ASPIRIN THIS MORNING. SHE COULD NOT VERIFY WHAT HER REACTION TO THE MEDICATION IS IT IS LISTED AN ALLERGY. PATIENT RECEIVED MEDICATION YESTERDAY AND HAS HAD NO APPARENT ADVERSE REACTIONS. I SPOKE TO BOTH SON JENN AND MALICK AND THEY ARE UNABLE TO REPORT WHAT HER SIDE EFFECT TO ASPIRIN IS. MALICK REQUESTED WE CONTINUE TO GIVE ASPIRIN DESPITE IT BEING LISTED AN ALLERGY HE WOULD PREFER HER TO USE THIS MEDICATION BLOOD THINNER THAN ANY OTHER MEDICATION. FAMILY INFORMED I WILL ATTEMPT TO GIVE TO PATIENT AT LUNCH TIME AND REPORT THE MEDICATION IS FOR HER HEART HEALTH. WILL OBSERVE FOR S/S OF ALLERGIC REACTION.
--- NOTE | 2020-08-26 14:38 | NUR ---
PT/SPOUSE REQUESTED ASPIRIN TO BE REMOVED FROM ALLERGY LIST SINCE PT HAS TOLERATED ASPIRIN FOR PAST 3 DAYS W/OUT REACTION. SPOUSE REPORTED PT HAS SHELLFISH ALLERGY. ALLERGY LIST UPDATED.
--- NOTE | 2020-08-26 18:23 | NUR ---
RN Shift summary: Pt is A/O to self and situation. She has been pleasant and cooperative t/out the day. Family has remained in room with pt t/out day. Pt had headache this am and tylenol given and no further complaints. Pt is up to restroom with standby assist and stable on feet. No c/of CP. Does have c/of burning in feet due to neuropathy but refuses medication. Plan is to DC tomorrow.
--- NOTE | 2020-08-27 06:15 | NUR ---
CASE PLANNER SUMMARY PT SLEPT WELL MOST OF THE NIGHT WITH FAMILY AT BEDSIDE. PT GETS ANXIOUS AND DISORIENTED WITHOUT FAMILY THERE. THIS AM PT WOKE UP AND COMPLAINED OF SOME CP THAT RADIATED DOWN TO ABD. PT REPORTED AN INCREASE IN PAIN WHEN AREA PALPATED. MEDICATED WITH TYLENOL X1 WITH NO EFFECT. GAVE NITRO X1 WITH NO EFFECT ALSO. NOTIFIED DR CHOUDHARY AND RECIEVED ORDER FOR 1X FENTANYL 25 MCG IV. PT ALSO COMPLAINS OF SOME DIZZINESS. VITALS ARE STABLE WITH SBP 130'S THIS AM. WILL CONTINUE TO MONITOR.
--- NOTE | 2020-08-27 12:19 | NUR ---
Spiritual care visit conducted. Patient is sitting up in bed and groggy. Patient ask if I could provide prayer, which I gladly provide. I also kneel and hold patient's hand and provide soothing touch, gentle encouragemnt and a calming presence. Patient responds well and shows signs of increased peace and voices appreciation for the visit.
--- NOTE | 2020-08-27 17:31 | NUR ---
PATIENT A/OX2-3, MENTATION CLEARED THROUGHOUT THE DAY. VERY ANXIOUS THIS AM WITH C/O PRESSLEY AND CHEST PAIN. SEROQUEL GIVEN TO TREAT ANXIETY AND PATIENT REPORTS THAT HER CHEST PAIN IMPROVED, BUT REFUSED TO RATE HER PAIN. HOT PACK PLACED ON CHEST FOR COMFORT. FAMILY AT BEDSIDE THROUGHOUT THE DAY. IS ANALYST WORKING WITH FAMILY TO GET PATIENT BACK TO [place] WITH HOME HEALTH. WORKED WITH PT TODAY AND WAS ABLE TO AMBULATE TO THE BATHROOM. FOUR WHEELED WALKER ORDERED AND WAS DELIVERED TO PATIENTS ROOM. TOLERATING DIET, TAKES PILLS WHOLE WITH WATER. FAMLY ASSISTING WITH CARE.
--- NOTE | 2020-08-28 04:59 | NUR ---
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 PT AAOX3 AND HAS BEEN PLEASANT. SEEMS MUCH LESS ANXIOUS TONIGHT COMPARED TO YESTERDAY. PT'S AT BEDSIDE UNTIL 0000 AND THEN SON SHOWED UP AFTER THAT TO BE WITH PT. PT DOES STILL GET ANXIOUS AT TIMES IF FAMILY ISN'T WITH HER. VSS, WILL CONTINUE TO MONITOR.
[2020-08-28] MEDS ORDERED: ASPI81CH PO (11:57)
[2020-08-28] MEDS ORDERED: ATORVASTATIN CA40 M1 PO (11:57)
[2020-08-28] MEDS ORDERED: ZEBUTAL 50-3251 EAC1 PO (12:00)
[2020-08-28] MEDS ORDERED: CLOP75 PO (12:01)
[2020-08-28] MEDS ORDERED: DOCU100 PO (12:02)
[2020-08-28] MEDS ORDERED: PEPCID20 MG PO (12:03)
[2020-08-28] MEDS ORDERED: FERSU300 PO (12:03)
[2020-08-28] MEDS ORDERED: QUET25 PO (12:04)
[2020-08-28] MEDS ORDERED: SENNA LAXATIVE8.6 MG PO (12:05)
[2020-08-28] MEDS ORDERED: CARV3.125 PO (12:06)
--- NOTE | 2020-08-28 12:30 | NUR ---
PATIENT D/C'D TO HOME WITH HOME HEALTH. RX MEDICATIONS FAXED TO [facility]. DC INSTRUCTIONS AND EDUCATION DISCUSSED WITH PATIENT AND COPY PROVIDED. PATIENT DENIES ANY FURTHER QUESTIONS OR CONCERNS.
== END 2020-08-28 12:45 | disposition home health service (06) | DRG 246 ==
LOC: ER 15:16 → ICUE 16:35 → PCU 16:35 → ICUW 16:35 → PCU 17:44 → ICUE 18:40 → PCU 08-21 14:41 → MEDS 08-25 16:31
PROVIDERS: Internal Medicine; Internal Medicine Cardiovascular Disease; Student in an Organized Health Care Education/Training Program; ADMIT Internal Medicine
PROC: 4A023N7 Measurement of Cardiac Sampling and Pressure, Left Heart, Percutaneous Approach (ICD-10-PCS; 2020-08-18)
PROC: B2111ZZ Fluoroscopy of Multiple Coronary Arteries using Low Osmolar Contrast (ICD-10-PCS; 2020-08-18)
PROC: 027034Z Dilation of Coronary Artery, One Artery with Drug-eluting Intraluminal Device, Percutaneous Approach (ICD-10-PCS; principal; 2020-08-19)
DX: I21.4 Non-ST elevation (NSTEMI) myocardial infarction (principal); G92 Toxic encephalopathy; I63.81 Other cerebral infarction due to occlusion or stenosis of small artery; F03.91 Unspecified dementia, unspecified severity, with behavioral disturbance; Z51.5 Encounter for palliative care; E78.5 Hyperlipidemia, unspecified; G30.9 Alzheimer's disease, unspecified; I10 Essential (primary) hypertension; D50.9 Iron deficiency anemia, unspecified; I35.1 Nonrheumatic aortic (valve) insufficiency; Z88.8 Allergy status to other drugs, medicaments and biological substances; Z87.891 Personal history of nicotine dependence
CPT/HCPCS: 36415; 51702; 70450; 71045; 71046; 76937; 80047; 80048; 80053; 80061; 81001; 83735; 84132; 84484; 85014; 85025; 85027; 85347; 85610; 85730; 86850; 86870; 86900; 86901; 87086; 93005; 93010; 93306; 93458; 93926; 97116; 97162; 97530; 99152; 99153; 99285-25; A9270; C1725; C1760; C1769; C1874; C1887; C1894; C9600; J0360; J1630; J1644; J2060; J2250; J2270; J2370; J2405; J3010; J3480; J7030; J7050; Q9967

== ENCOUNTER → 2020-11-23 | Outpatient (CLI) | payer MEDICARE, OTHER ==
[~2020-11-23] MED LIST: ACET325 PO; ASPI81CH PO; ATORVASTATIN CA40 M1 PO; CARV3.125 PO; CLOP75 PO; DOCU100 PO; FERSU300 PO; Lisinopril2.5 MG; METF500; NITR.4SL SL; PEPCID20 MG PO; QUET25 PO; SENNA LAXATIVE8.6 MG PO; Synthroid200 MCG PO; TRAZ50 PO; ZEBUTAL 50-3251 EAC1 PO
[2020-11-24 10:38] LABS: Stool Occult Bld Immuno 1 Negative (NEGATIVE)
== END | disposition home or self-care (01) ==
LOC: LAB SHORT 15:02 → LAB FUT 10-23 15:35
PROVIDERS: Student in an Organized Health Care Education/Training Program
DX: D50.9 Iron deficiency anemia, unspecified (principal)
CPT/HCPCS: 82274

== ENCOUNTER 2021-05-12 08:53 | Emergency (ER) | payer MEDICARE, OTHER ==
[~2021-05-12] VITALS: Ht 152.4 cm; Wt 63.5 kg
== END 2021-05-12 10:59 | disposition home or self-care (01) ==
LOC: ER 08:53
DX: M79.672 Pain in left foot (principal); Z88.0 Allergy status to penicillin; Z91.030 Bee allergy status; Z79.899 Other long term (current) drug therapy; Z79.82 Long term (current) use of aspirin
CPT/HCPCS: 93970; 99283-25